=== PATIENT | female | born 1970 | race American Indian/Alaskan Native ===

== ENCOUNTER 2020-01-02 11:00 | Outpatient (CLI) | payer BC | END 2020-01-02 11:01 | disposition home or self-care (01) | LOC: SLR 11:00 | PROVIDERS: ATTEND Otolaryngology | DX: G47.30 Sleep apnea, unspecified (principal) | CPT/HCPCS: G0399 ==

== ENCOUNTER 2020-04-11 14:33 | Outpatient (CLI) | payer BC ==
[2020-04-11 15:06] LABS: Basophils % (Auto) 0.8 % (0.0-1.8); Eosinophils # (Auto) 0.1 K/mm3 (0.0-0.4); Eosinophils % (Auto) 1.8 % (0.0-4.3); Hematocrit 39.6 % (30.3-42.9); Hemoglobin 13.7 gm/dl (10.1-14.3); Lymphocytes # (Auto) 1.7 K/mm3 (1.2-5.4); Lymphocytes % (Auto) 39.7 % (13.4-35.0); Mean Corpuscular HGB Conc 35 % (30-34); Mean Corpuscular Volume 86 fl (79-97); Monocytes # (Auto) 0.5 K/mm3 (0.0-0.8); Monocytes % (Auto) 10.5 % (0.0-7.3); Platelet Count 298 K/mm3 (140-440); Red Blood Count 4.62 M/mm3 (3.65-5.03); Red Cell Distribution Width 15.8 % (13.2-15.2)
[2020-04-11 15:36] LABS: Alanine Aminotransferase 28 units/L (7-56); Albumin 4.2 g/dL (3.9-5); BUN/Creatinine Ratio 13; Blood Urea Nitrogen 8 mg/dL (7-17); Calcium 9.4 mg/dL (8.4-10.2); Chol/HDL Ratio 3.15 %; HDL Cholesterol 59 mg/dL (40-59); Hemolysis Index 3; Iron 40 ug/dL (37-170); LDL Cholesterol,Direct 114 mg/dL (50-130); Total Iron Binding Capacity 348 mcg/dL (250-450)
== END 2020-04-11 14:34 | disposition home or self-care (01) ==
LOC: LAB 14:33
PROVIDERS: ATTEND Surgery
DX: E66.01 Morbid (severe) obesity due to excess calories (principal); E11.9 Type 2 diabetes mellitus without complications; K30 Functional dyspepsia
CPT/HCPCS: 36415; 80053; 80061; 82306; 82607; 82728; 83036; 83550; 84443; 85025; 85730

== ENCOUNTER 2020-04-16 06:08 | Day surgery (SDC) | payer BC ==
[2020-04-16] MEDS ORDERED: SODIUM CHLORIDE 0.9% 1000 ML 1,000 ML IV SCH (07:30)
--- NOTE | 2020-04-16 08:25 | Anesthesia Consultation ---
Anesthesia Consult and Med Hx Date of service: 04/16/20 - Airway Anesthetic Teeth Evaluation: Edentulous ROM Head & Neck: Adequate Mental/Hyoid Distance: Inadequate Mallampati Class: Class II Intubation Access Assessment: Probably Good - Pulmonary Exam CTA: Yes - Pre-Operative Health Status ASA Pre-Surgery Classification: ASA3 Proposed Anesthetic Plan: MAC - Pulmonary Hx Smoking: No Hx Asthma: No Hx Respiratory Symptoms: No SOB: No Hx Sleep Apnea: Yes (Does not use CPAP machine) - Cardiovascular System Hx Hypertension: Yes Hx Heart Attack/AMI: No Hx Angina: No - Central Nervous System Hx Neuromuscular Disorder: No Hx Seizures: No CVA: No Hx Psychiatric Problems: No - Gastrointestinal Hx Gastroesophageal Reflux Disease: Yes - Endocrine Hx Renal Disease: No Hx Liver Disease: No Hx Insulin Dependent Diabetes: No Hx Non-Insulin Dependent Diabetes: No Hx Thyroid Disease: No - Hematic Hx Anemia: No - Other Systems Hx Alcohol Use: Yes (occasionally) Hx Substance Use: No Hx Obesity: Yes (BMI- 49.7kg) - Additional Comments Anesthesia Medical History Comments: Patient denied previous anesthesia complication.
--- NOTE | 2020-04-16 08:25 | Anesthesia Day of Surgery ---
Anesthesia Day of Surgery - Day of Surgery Patient Examined: Yes Patient H&P Reviewed: Yes Patient is NPO: Yes Beta Blockers: No Cardiac Clearance: No Pulmonary Clearance: No
[2020-04-16] MEDS ORDERED: propofoL 200 MG/20 ML VIAL IV ONE ×2 (09:00→09:09)
[2020-04-16] MEDS ORDERED: LIDOCAINE MPF (2%) 20 MG/1 ML VIAL 5 ML ONE (09:00)
[2020-04-16] MEDS ORDERED: ONDANSETRON 4 MG/2 ML INJ ONE (09:00)
[2020-04-16] MEDS ORDERED: fentaNYL 100 MCG/2 ML INJ ONE (09:00)
[2020-04-16] MEDS ORDERED: SODIUM CHLORIDE 0.9% 1000 ML IV SOLN IV ONE (09:04)
--- NOTE | 2020-04-16 09:14 | Discharge Summary ---
Providers - Providers Date of Admission: 04/16/2020 Date of discharge: 04/16/20 Attending physician: CHRISTIANO EASTMAN MD Hospitalization Reason for admission: pre-op bariatric EGD Condition: Good Procedures: EGD with biopsy Hospital course: Pt presented for a pre-op EGD as part of planning for up coming bariatric surgery. Procedure was uneventful and pt recovered well and was discharged to home. Disposition: DC-01 TO HOME OR SELFCARE Core Measure Documentation - Palliative Care Palliative Care/ Comfort Measures: Not Applicable - Core Measures Any of the following diagnoses?: none Exam - Physical Exam Narrative exam: unchanged from pre-op - Constitutional Vitals: Temp Pulse Resp BP Pulse Ox 98.2 F 88 23 126/66 98 04/16/20 08:22 04/16/20 08:22 04/16/20 08:22 04/16/20 08:22 04/16/20 08:22 Plan Activity: no restrictions Diet: low carbohydrate Follow up with: OSCAR ROD [Other] - 7 Days
--- NOTE | 2020-04-16 09:18 | Operative Report ---
Operative Report Operative Report: DATE: 04/16/2020 SURGERY: Upper endoscopy. SURGEON: Adriano Cooper M.D. PROCEDURE: EGD with biopsy PRE OP DX: morbid obesity, GERD POST OP DX: morbid obesity, GERD TYPE OF ANESTHESIA: MAC. ESTIMATED BLOOD LOSS: None. COMPLICATIONS: None. SPECIMENS REMOVED: antral biopsy FINDINGS: 1. Small hiatal hernia. 2. antral gastritis. INDICATIONS:INDICATION FOR PROCEDURE: Patient is a 49-year-old female with a long history of morbid obesity. She is planned to have a weight loss procedure and is here for preoperative planning EGD. PROCEDURE DETAILS: After consent was reviewed, patient was taken back to the operating room where patient was placed in the left lateral decubitus position and a bite block was placed in the mouth. After a time-out was called, MAC anesthesia was initiated. I then passed the endoscope into her oropharynx, into her esophagus, visualized the entire esophagus, which was all within normal limits. Z-line was noted to about 35cm from incisors. I then visualized the stomach and the first portion of the duodenum and there were no abnormalities I could clearly visualize. A cold forceps biopsy of the antrum was taken and will be sent to pathology to evaluate for H.pylori. I then retroflexed the scope in the stomach and visualized the hiatus and I could see a small hiatal hernia. I then desufflated the stomach and removed the endoscope. Patient tolerated procedure well and was transferred to recovery room in good and stable condition.
[2020-04-16 09:46] VITALS: BP 113/58
[2020-04-16] MEDS ORDERED: SODIUM CHLORIDE 0.9% 1000 ML 1,000 ML ONE (10:47)
--- NOTE | 2020-04-16 13:18 | Post Anesthesia Evaluation ---
- Post Anesthesia Evaluation Patient Participated: Yes Airway Patent: Yes Stable Respiratory Function: Yes Nausea/Vomiting: No Temp > 96.8F: Yes Pain Manageable: Yes Adequeate Hydration: Yes Anesthesia Complications: No
== END 2020-04-16 10:05 | disposition home or self-care (01) ==
LOC: GIO 06:08
PROVIDERS: ATTEND Surgery
DX: K21.9 Gastro-esophageal reflux disease without esophagitis (principal); E66.01 Morbid (severe) obesity due to excess calories; K44.9 Diaphragmatic hernia without obstruction or gangrene; K29.50 Unspecified chronic gastritis without bleeding; I10 Essential (primary) hypertension; E78.00 Pure hypercholesterolemia, unspecified; G47.30 Sleep apnea, unspecified; M19.90 Unspecified osteoarthritis, unspecified site; Z91.013 Allergy to seafood; Z88.2 Allergy status to sulfonamides; Z79.899 Other long term (current) drug therapy; Z85.3 Personal history of malignant neoplasm of breast; Z72.89 Other problems related to lifestyle; Z98.890 Other specified postprocedural states; Z90.10 Acquired absence of unspecified breast and nipple
CPT/HCPCS: 43239; 88305; 88342; J2405; J2704; J3010; J7030

== ENCOUNTER 2020-06-05 10:10 | Outpatient (CLI) | payer BC ==
--- NOTE | 2020-06-05 12:21 | Fluoroscopy Report ---
UPPER GI HISTORY: FUNCTIONAL DYSPEPSIA. TECHNIQUE: Single and double contrast barium technique utilized to evaluate the esophagus, stomach, and duodenal C-loop. FINDINGS: To begin the exam, swallowing was evaluated in the lateral position under direct fluorosco py. Swallowing was normal. No mucosal irregularity, mass, mass effect, or critical stenosis. There were no abnormal tertiary c ontractions as seen with dysmotility. No gastroesophageal reflux. IMPRESSION: Unremarkable exam. Fluoroscopic time: 2.0 minutes Number of fluoroscopic images: 18 Comment: During the acquisition of the overhead radiographs, the patient began experiencing right-chapo ed numbness and nausea. It was decided to send the patient to the emergency department for evaluation . Signer Name: Wilfred Dolan Jr, MD Signed: 06/05/2020 12:17 PM Workstation Name: [id number]
== END 2020-06-05 10:11 | disposition home or self-care (01) ==
LOC: FLUORO 10:10
PROVIDERS: ATTEND Surgery
DX: K30 Functional dyspepsia (principal)
CPT/HCPCS: 74246

== ENCOUNTER 2020-06-05 11:48 | Emergency (ER) | payer BC ==
--- NOTE | 2020-06-05 12:36 | Event Note ---
ED Screening Note Date of service: 06/05/20 Time: 12:34 ED Screening Note: Pleasant 49-year-old female presents the emergency department with a chief complaint of feeling generalized weakness and lightheadedness. She was undergoing an upper endoscopy at her GI doctors office and was unable to c omplete the procedure due to her symptoms. She was sent over to the emergency department for evaluation. She reports she was getting the under upper endoscopy for presurgical planning for a sleeve gastrectomy This initial assessment/diagnostic orders/clinical plan/treatment(s) is/are subject to change based on patients health status, clinical progression and re- assessment by fellow clinical providers in the ED. Further treatment and workup at subsequent clinical providers discretion. Patient/guardian urged not to elope from the ED as their condition may be serious if not clinically assessed and managed. Initial orders include: CBC, CMP, PT, PTT, EKG, troponin, chest x-ray
[2020-06-05] MEDS ORDERED: ONDANSETRON 4 MG/2 ML INJ IV ONE (13:45)
[2020-06-05] MEDS ORDERED: SODIUM CHLORIDE 0.9% 1000 ML 1,000 ML IV ONE (13:45)
[2020-06-05] MEDS ORDERED: MECLIZINE 25 MG TAB PO ONE (13:45)
--- NOTE | 2020-06-05 13:46 | Emergency Department Report ---
ED Dizziness HPI - General Chief Complaint: Dizziness Stated Complaint: NAUSEA/WEAK Time Seen by Provider: 06/05/20 13:35 Source: patient Mode of arrival: Wheelchair Limitations: No Limitations - History of Present Illness Initial Comments: Patient is 49 years old female with history of hypertension. Patient presented to the ER from her GI doctor after patient supposed to have an upper GI endoscopy for preparation of gastrectomy. Patient stated that she felt dizzy and felt the room started spinning. Patient stated that she became more bit nauseated. Patient denied any headache, neck pain, focal weakness numbness or tingling sensation. No bowel or bladder incontinence. Patient denied any chest pain or shortness of breath. MD Complaint: dizziness, lightheadedness -: This morning Timing: sudden onset Description: "room spinning" History of Same: No Improves With: remaining still Associated Symptoms: denies other symptoms - Related Data Home Medications Medication Instructions Recorded Confirmed Last Taken amLODIPine 10 mg PO DAILY 04/16/20 06/05/20 04/15/20 09:00 Allergies Allergy/AdvReac Type Severity Reaction Status Date / Time shellfish derived Allergy Swelling,HI Verified 06/05/20 13:49 VES Sulfa (Sulfonamide Allergy Swelling,HI Verified 06/05/20 13:49 Antibiotics) VES ED Review of Systems ROS: Stated complaint: NAUSEA/WEAK Other details as noted in HPI Comment: All other systems reviewed and negative Constitutional: denies: chills, fever Respiratory: denies: cough, shortness of breath, SOB with exertion Cardiovascular: denies: chest pain, palpitations Gastrointestinal: nausea. denies: abdominal pain, vomiting Musculoskeletal: denies: back pain Neurological: denies: headache, weakness ED Past Medical Hx - Past Medical History Previous Medical History?: Yes Hx Hypertension: Yes Hx Heart Attack/AMI: No Hx Liver Disease: No Hx Renal Disease: No Hx of Cancer: Yes (breast) Hx Arthritis: Yes Hx Seizures: No Hx Asthma: No - Surgical History Past Surgical History?: Yes Additional Surgical History: mastectomy. left knee surgery - Social History Smoking Status: Never Smoker Substance Use Type: None - Medications Home Medications: Home Medications Medication Instructions Recorded Confirmed Last Taken Type amLODIPine 10 mg PO DAILY 04/16/20 06/05/20 04/15/20 09:00 History ED Physical Exam - General Limitations: No Limitations General appearance: alert, in no apparent distress - Head Head exam: Present: atraumatic, normocephalic, normal inspection - Eye Eye exam: Present: normal appearance, PERRL - ENT ENT exam: Present: normal exam, normal orophraynx, mucous membranes moist - Neck Neck exam: Present: normal inspection, full ROM. Absent: tenderness, meningismus - Respiratory Respiratory exam: Present: normal lung sounds bilaterally - Cardiovascular Cardiovascular Exam: Present: regular rate, normal rhythm, normal heart sounds - GI/Abdominal GI/Abdominal exam: Present: soft, normal bowel sounds. Absent: distended, tenderness, guarding, rebound, rigid, organomegaly, mass, bruit, pulsatile mass, hernia - Back Exam Back exam: Present: normal inspection, full ROM. Absent: CVA tenderness (R), CVA tenderness (L) - Neurological Exam Neurological exam: Present: alert, oriented X3, CN II-XII intact, normal gait, reflexes normal. Absent: motor sensory deficit - Psychiatric Psychiatric exam: Present: normal mood - Skin Skin exam: Present: warm, intact, normal color ED Course Vital Signs 06/05/20 06/05/20 12:30 15:07 Temperature 97.9 F Pulse Rate 101 H 74 Respiratory 16 16 Rate Blood Pressure 138/75 Blood Pressure 119/71 [Left] O2 Sat by Pulse 98 96 Oximetry ED Medical Decision Making - Lab Data Result diagrams: 06/05/20 13:41 06/05/20 14:43 - EKG Data -: EKG Interpreted by Me EKG shows normal: sinus rhythm Rate: normal - EKG Data Interpretation: no acute changes - Radiology Data Radiology results: report reviewed - Medical Decision Making Patient is 49 years old female with history of hypertension. Patient presented to the ER from her GI doctor after patient supposed to have an upper GI endoscopy for preparation of gastrectomy. Patient stated that she felt dizzy and felt the room started spinning. Patient stated that she became more bit nauseated. Patient denied any headache, neck pain, focal weakness numbness or tingling sensation. No bowel or bladder incontinence. Patient denied any chest pain or shortness of breath. Patient received meclizine and Zofran. Patient stated that she is feeling much better and her symptoms completely resolved. Labs reviewed and is unremarkable. EKG is unremarkable. CT brain is negative for acute finding. Patient symptoms most likely related to positional vertigo however patient advised to follow-up with her primary care physician for further management in the next 2 to 3 days and to return to the ER if she develop any new symptoms. Critical care attestation.: If time is entered above; I have spent that time in minutes in the direct care of this critically ill patient, excluding procedure time. ED Disposition Clinical Impression: Dizziness, Vertigo Disposition: DC-01 TO HOME OR SELFCARE Is pt being admited?: No Condition: Stable Instructions: Dizziness, [id number] Referrals: OSCAR ROD NP [Primary Care Provider] - 3-5 Days
[2020-06-05] MEDS ORDERED: ONDANSETRON 4 MG ODT TAB PO ONE (14:00)
[2020-06-05 14:14] LABS: Basophils % (Auto) 0.6 % (0.0-1.8); Eosinophils % (Auto) 0.3 % (0.0-4.3); Hematocrit 41.3 % (30.3-42.9); Hemoglobin 14.2 gm/dl (10.1-14.3); Lymphocytes % (Auto) 19.6 % (13.4-35.0); Mean Corpuscular HGB Conc 34 % (30-34); Mean Corpuscular Volume 86 fl (79-97); Monocytes # (Auto) 0.4 K/mm3 (0.0-0.8); Monocytes % (Auto) 7.4 % (0.0-7.3); Platelet Count 293 K/mm3 (140-440); Red Blood Count 4.83 M/mm3 (3.65-5.03); Red Cell Distribution Width 15.6 % (13.2-15.2)
[2020-06-05 14:24] LABS: INR 1.03 (0.87-1.13)
[2020-06-05 14:25] LABS: Partial Thromboplastin Time 25.8 Sec. (24.2-36.6)
--- NOTE | 2020-06-05 14:53 | Cat Scan Report ---
CT HEAD WITHOUT CONTRAST INDICATION / CLINICAL INFORMATION: DIZZINESS. TECHNIQUE: Axial imaging performed from the skull apex through the skull base without the use of cont rast. Sagittal and coronal reformatted images. All CT scans at this location are performed using CT dose reduction for ALARA by means of automated exposure control. COMPARISON: None available. FINDINGS: CEREBRAL PARENCHYMA: No significant abnormality. No acute territorial infarct. HEMORRHAGE: None. EXTRA-AXIAL SPACES: Normal in size and morphology for the patient's age. VENTRICULAR SYSTEM: Normal in size and morphology for the patient's age. MIDLINE SHIFT OR HERNIATION: None. CEREBELLUM / BRAINSTEM: No significant abnormality. CALVARIUM: No significant abnormality. ORBITS: Normal as visualized. PARANASAL SINUSES / MASTOID AIR CELLS: Normal as visualized. SOFT TISSUES of HEAD: No significant abnormality. ADDITIONAL FINDINGS: None. IMPRESSION: No acute intracranial abnormality. Signer Name: Wilfred Dolan Jr, MD Signed: 06/05/2020 2:49 PM Workstation Name: [id number]
[2020-06-05 15:21] LABS: Alanine Aminotransferase 28 units/L (7-56); Albumin 4.6 g/dL (3.9-5); Blood Urea Nitrogen 6 mg/dL (7-17); Hemolysis Index 7
[2020-06-05 15:28] LABS: BUN/Creatinine Ratio 9
[2020-06-05 15:44] LABS: Bacteria,Urine 1+ /HPF (Negative); Bilirubin,Urine NEG (Negative); Blood,Urine NEG (Negative); Color,Urine Yellow (Yellow); Mucus,Urine 1+ /HPF; Protein,Urine <15 mg/dL mg/dL (Negative); Urobilinogen,Urine < 2.0 mg/dL (<2.0)
[2020-06-05 15:50] LABS: HCG Qualitative,Urine Negative (Negative)
--- NOTE | 2020-06-05 16:30 | XRay Report ---
CHEST 1 VIEW 06/05/2020 4:10 PM INDICATION / CLINICAL INFORMATION: dizziness. COMPARISON: None available. FINDINGS: SUPPORT DEVICES: None. HEART / MEDIASTINUM: Heart is enlarged. LUNGS / PLEURA: Mild increased vascularity. No focal consolidation. No pneumothorax. ADDITIONAL FINDINGS: No significant additional findings. IMPRESSION: 1. Cardiomegaly with mild increased vascularity. Signer Name: Bryon Asencio MD Signed: 06/05/2020 4:26 PM Workstation Name: [id number]
[2020-06-05 18:31] VITALS: BP 83/54
== END 2020-06-05 18:42 | disposition home or self-care (01) ==
LOC: ED 11:48
DX: R42 Dizziness and giddiness (principal); I10 Essential (primary) hypertension; M19.91 Primary osteoarthritis, unspecified site; Z98.890 Other specified postprocedural states; Z79.899 Other long term (current) drug therapy; Z88.2 Allergy status to sulfonamides; Z91.013 Allergy to seafood
CPT/HCPCS: 36415; 70450; 71045; 80053; 81001; 81025; 82962; 84484; 85025; 85610; 85730; 93005; Q0162

== ENCOUNTER 2020-06-17 07:30 | Inpatient (IN) | payer BC ==
[2020-07-04 14:05] LABS: Hematocrit 43.9 % (30.3-42.9); Hemoglobin 14.7 gm/dl (10.1-14.3); Mean Corpuscular HGB Conc 33 % (30-34); Mean Corpuscular Volume 86 fl (79-97); Platelet Count 355 K/mm3 (140-440); Red Blood Count 5.08 M/mm3 (3.65-5.03); Red Cell Distribution Width 15.8 % (13.2-15.2)
[2020-07-04 14:26] LABS: Alanine Aminotransferase 31 units/L (7-56); Albumin 4.4 g/dL (3.9-5); Blood Urea Nitrogen 12 mg/dL (7-17); Hemolysis Index 3
[2020-07-04 14:28] LABS: BUN/Creatinine Ratio 17
--- NOTE | 2020-07-04 14:57 | Anesthesia Consultation ---
Anesthesia Consult and Med Hx Date of service: 07/08/20 - Airway Anesthetic Teeth Evaluation: Good ROM Head & Neck: Adequate Mental/Hyoid Distance: Adequate Mallampati Class: Class III Intubation Access Assessment: Possibly Difficult (small mouth opening) - Pulmonary Exam CTA: Yes - Cardiac Exam Cardiac Exam: RRR - Pre-Operative Health Status ASA Pre-Surgery Classification: ASA3 Proposed Anesthetic Plan: General - Pulmonary Hx Smoking: No Hx Respiratory Symptoms: No (early obstructive dz on PFTs) Hx Sleep Apnea: Yes (moderate; compliant with CPAP) - Cardiovascular System Hx Hypertension: Yes Hx Heart Attack/AMI: No (normal TTE per cardiology eval) Hx Percutaneous Transluminal Coronary Angioplasty (PTCA): No Hx Cardia Arrhythmia: No - Central Nervous System CVA: No - Gastrointestinal Hx Gastroesophageal Reflux Disease: Yes - Endocrine Hx Renal Disease: No Hx Liver Disease: No Hx Insulin Dependent Diabetes: No Hx Non-Insulin Dependent Diabetes: No Hx Thyroid Disease: No - Other Systems Hx Cancer: Yes (hx breast ca) Hx Obesity: Yes (BMI 47) - Additional Comments Anesthesia Medical History Comments: No hx anesthetic complications.
[2020-07-08] MEDS ORDERED: metroNIDAZOLE/NS 500 MG/100 ML 500 MG/100 ML BAG IV NR (06:00)
[2020-07-08] MEDS ORDERED: ENOXAPARIN 40 MG/0.4 ML INJ SUB-Q NR (06:00)
[2020-07-08] MEDS ORDERED: GABAPENTIN 500 MG/10 ML ORAL LIQD PO NR (06:00)
[2020-07-08] MEDS ORDERED: SCOPOLAMINE TRANSDERMAL PATCH 72 HR TD SCH (06:00)
[2020-07-08] MEDS ORDERED: LACTATED RINGERS 1,000 ML IV SCH ×2 (06:00→10:45)
[2020-07-08] MEDS ORDERED: ACETAMINOPHEN 325 MG/10.15 ML ORAL LIQD UNIT DOSE PO NR (06:00)
[2020-07-08] MEDS ORDERED: SCOPOLAMINE TRANSDERMAL PATCH 72 HR TD NR (06:00)
[2020-07-08] MEDS ORDERED: ceFAZolin/Water 2 GM/20 ML 2 GM/20 ML SYRINGE IV NR (06:00)
[2020-07-08] MEDS ORDERED: BACTERIOSTATIC SODIUM CHLORIDE 0.9% 30 ML VIAL INFILTRATI ONE (06:23)
--- NOTE | 2020-07-08 06:43 | Anesthesia Day of Surgery ---
Anesthesia Day of Surgery - Day of Surgery Patient Examined: Yes Patient H&P Reviewed: Yes Patient is NPO: Yes Beta Blockers: Yes
[2020-07-08] MEDS ORDERED: MAGNESIUM SULFATE 2 GM/50 ML BAG IV ONE (07:02)
[2020-07-08] MEDS ORDERED: SUGAMMADEX SODIUM 200 MG/2 ML VIAL IV ONE (07:02)
[2020-07-08] MEDS ORDERED: KETAMINE/STERILE WATER 50 MG/ML SYRINGE ONE (07:05)
[2020-07-08] MEDS ORDERED: LIDOCAINE MPF (2%) 20 MG/1 ML VIAL 5 ML ONE ×4 (07:06)
[2020-07-08] MEDS ORDERED: SODIUM CHLORIDE P/F VIAL 10 ML 10 ML ONE ×2 (07:06→07:09)
[2020-07-08] MEDS ORDERED: BUPIVACAINE/PF (0.25%) 2.5 MG/ML 30 ML VIAL INFILTRATI ONE ×3 (07:33→08:52)
[2020-07-08] MEDS ORDERED: LIDOCAINE 1.5% /EPINEPHRINE 1:200,000 AMP (5 ML) INFILTRATI ONE ×3 (07:33→08:25)
[2020-07-08] MEDS ORDERED: BUPIVACAINE/PF (0.5%) 5 MG/1 ML 30 ML VIAL INFILTRATI ONE ×2 (07:35→07:37)
[2020-07-08] MEDS ORDERED: dexAMETHasone 20 MG/5 ML VIAL ONE (08:17)
[2020-07-08] MEDS ORDERED: ONDANSETRON 4 MG/2 ML INJ ONE (08:18)
[2020-07-08] MEDS ORDERED: LIDOCAINE 2%/EPINEPHRINE 1:100,000 VIAL (20 ML) INFILTRATI ONE (08:53)
[2020-07-08] MEDS ORDERED: SODIUM CHLORIDE 0.9% IRR 1,500 ML BOTTLE IR ONE (08:54)
[2020-07-08] MEDS ORDERED: propofoL 200 MG/20 ML VIAL IV ONE (09:55)
[2020-07-08] MEDS ORDERED: KETOROLAC 30 MG/1 ML INJ ONE (10:22)
[2020-07-08] MEDS ORDERED: ONDANSETRON 4 MG/2 ML INJ IV PRN (10:36)
[2020-07-08] MEDS ORDERED: MORPHINE 2 MG/1 ML INJ IV PRN (10:36)
[2020-07-08] MEDS ORDERED: HYDROcodone/Acetaminophen 7.5-325MG-15ML ORAL LIQD PO PRN (10:36)
[2020-07-08] MEDS ORDERED: METOCLOPRAMIDE 10 MG/2 ML INJ IV PRN (10:36)
[2020-07-08] MEDS ORDERED: SIMETHICONE 80 MG CHEW TAB PO PRN (10:36)
[2020-07-08] MEDS ORDERED: hydrALAZINE 20 MG/1 ML INJ IV PRN (10:36)
[2020-07-08] MEDS ORDERED: ROCURONIUM 50 MG/5 ML INJ IV ONE ×2 (10:42)
--- NOTE | 2020-07-08 10:43 | Operative Report ---
Operative Report Operative Report: DATE:07/08/2020 Surgeon: Adriano Cooper MD Insurance Appraiser surgeon: Dar Ríos CSA MD Pre-op Dx: morbid obesity Post-op Dx: morbid obesity Procedure: 1. laparoscopic sleeve gastrectomy, 2. hiatal hernia repair Anesthesia: GETA, TAP block with 0.25% marcaine EBL: <10ml Specimen: gastric remnant Complication: none immediate Indication: 49 year old female with a history of morbid obesity . Pt is here for sleeve gastrectomy for weight loss to achieve healthier weight and improve or resolve his co-morbidities. She expressed understanding of the risks and benefits. PROCEDURE IN DETAIL: After consent was reviewed, patient was taken back to the operating room, where patient was placed supine on the bed with both arms out. The patient's legs were doubly strapped to the bed. Patient had a foot board in place. Patient had a body warmer placed by anesthesia. General anesthesia was induced with successful endotracheal intubation. Patient was then prepped and draped in normal sterile surgical fashion. After a time-out was called, I made a stab incision in the left subcostal area and placed a Veress needle through this incision and insufflated the abdomen to 18 mmHg pressure. I then counted down a handsbreadth below the xiphoid process in the midline and slightly left lateral injected local anesthetic and made about 1 cm transverse incision. I then used a 5-mm Optiview trocar to enter into the abdomen. There was no gross injury to any intra-abdominal structures. I then placed a 30-degree scope through this port and inspected the abdomen. I then placed a 8-mm port in the right upper quadrant, and 1 5mm epigastric area below the costovertebral angle. I then placed a 15-mm port about a handsbreadth in the right mid abdomen. After which a 5mm port was placed in left upper quadrant port along the anterior axillary line in a similar fashion. A liver retractor was placed to the epigastric port to elevate the left lateral lobe and liver. There was a small hiatal hernia appreciated that was accentuated with right and left crural dissection. Hiatal hernia sac was dissected from the crura until the GE junction was resting about 2cm below the level of the diaphragm without tension. An anterior crura-plasty was preformed a U-stitch using surgidac suture. The anterior gastric fat pad was excised. Starting approximately 6 cm proximal to the pylorus, using a LigaSure device the short gastrics were taken all the way to the left shree. Once the lateral portion of the stomach was mobile anesthesia passed a 40 Swiss bougie along the medial aspect to act as a stent. Using serial firings of endoscopic stapler to gold, followed by 4 blue, the lateral portion of the stomach was transected making sure to did not close to the 2 cm to the incisura. All staple loads were supported with peristrips buttress. The sleeve stomach was seen to be without kink obstruction or twisting. The pressure was decreased to 10 mmHg. The staple line was inspected for approximately 5 minutes. There was no significant bleeding appreciated except. Bleeding was minimal and easily controlled with minimal cautery. Tisseel was then sprayed along the entirety of the staple line. The liver retractor was removed. A TAP block we performed under direct visualization along bilateral mid axillary lines from the subcostal regions to just below the level of the umbilicus. This was before the gastric remnant was grasped and pulled into the 15 mm trocar site. The stomach was extracted via the 15 mm trocar site. After the fascia had to be stretched with a Oralia clamp to easily remove the stomach, the fascia was closed using a tracie tiny device at the level of the fascia with an 0 PDS. trocars were removed under direct visualization. All skin incisions were closed with 4-0 Monocryl followed by Dermabond. Patient was awoken, extubated, and taken to recovery stable condition. All counts were correct.
[2020-07-08] MEDS ORDERED: fentaNYL 100 MCG/2 ML INJ IV NR (11:28)
[2020-07-08] MEDS: KETOROLAC 30 MG/1 ML INJ IV SCH ×3 (11:40→22:18)
[2020-07-08] MEDS: metroNIDAZOLE/NS 500 MG/100 ML 500 MG/100 ML BAG IV SCH (14:17)
[2020-07-08] MEDS: ceFAZolin/NS 1 GM/50 ML 1 GM/50 ML BAG IV SCH ×2 (14:17→23:38)
[2020-07-09] MEDS: metroNIDAZOLE/NS 500 MG/100 ML 500 MG/100 ML BAG IV SCH ×2 (06:02→06:10)
[2020-07-09] MEDS: KETOROLAC 30 MG/1 ML INJ IV SCH ×3 (06:07→17:25)
[2020-07-09 06:32] LABS: Basophils % (Auto) 0.2 % (0.0-1.8); Hematocrit 37.8 % (30.3-42.9); Hemoglobin 12.6 gm/dl (10.1-14.3); Lymphocytes # (Auto) 0.6 K/mm3 (1.2-5.4); Lymphocytes % (Auto) 7.6 % (13.4-35.0); Mean Corpuscular HGB Conc 34 % (30-34); Mean Corpuscular Volume 87 fl (79-97); Monocytes # (Auto) 0.8 K/mm3 (0.0-0.8); Monocytes % (Auto) 10.9 % (0.0-7.3); Platelet Count 273 K/mm3 (140-440); Red Blood Count 4.34 M/mm3 (3.65-5.03); Red Cell Distribution Width 15.8 % (13.2-15.2)
[2020-07-09 06:51] LABS: Alanine Aminotransferase 35 units/L (7-56); Albumin 3.8 g/dL (3.9-5); Blood Urea Nitrogen 8 mg/dL (7-17); Calcium 8.8 mg/dL (8.4-10.2); Hemolysis Index 3
[2020-07-09 06:57] LABS: BUN/Creatinine Ratio 11
[2020-07-09] MEDS ORDERED: NON-FORMULARY EACH (Amlodipine 10 MG) PO SCH (10:00)
[2020-07-09] MEDS ORDERED: ENOXAPARIN 40 MG/0.4 ML INJ SUB-Q SCH (10:00)
[2020-07-09] MEDS ORDERED: amLODIPine 10 MG TAB PO SCH (10:00)
--- NOTE | 2020-07-09 10:29 | Progress Note ---
Assessment and Plan POD#1 s/p lap gastric sleeve for morbid obesity and hiatal hernia repair. afebrile and stable showing no clinical signs of leak or bleeding. Will monitor PO fluid intake. If adequate will be discharged today. If she is barely getting enough fluids may need to keep until tomorrow to try to prevent dehydration when she gets home. Subjective Date of service: 07/09/20 Patient Reports: Positive: no new complaints, pain is less Narrative: no acute events overnight. Pt is starting to take clear liquids and is only taking a few sips at a time. Nausea is improved. She ambulated well with PT. Objective Vital Signs - 12hr 07/08/20 07/09/20 07/09/20 23:26 05:16 07:50 Temperature 98.6 F 98.7 F 98.8 F Pulse Rate 93 H 99 H 94 H Respiratory 18 18 18 Rate Blood Pressure 119/69 110/68 106/62 O2 Sat by Pulse 95 97 97 Oximetry - General physical appearance well developed, no distress, no pain - Respiratory normal expansion, normal respiratory effort - Abdomen soft, not distended, other (appropriately tender to palpation, incisions c/d/i) - Labs 07/09/20 06:14 07/09/20 06:14 Diabetes panel 07/09/20 Range/Units 06:14 Sodium 140 (137-145) mmol/L Potassium 4.1 (3.6-5.0) mmol/L Chloride 103.2 (98-107) mmol/L Carbon Dioxide 28 (22-30) mmol/L BUN 8 (7-17) mg/dL Creatinine 0.7 (0.6-1.2) mg/dL Glucose 111 H (65-100) mg/dL Calcium 8.8 (8.4-10.2) mg/dL AST 35 (5-40) units/L ALT 35 (7-56) units/L Alkaline Phosphatase 50 (35-129) units/L Total Protein 6.8 (6.3-8.2) g/dL Albumin 3.8 L (3.9-5) g/dL Calcium panel 07/09/20 Range/Units 06:14 Calcium 8.8 (8.4-10.2) mg/dL Albumin 3.8 L (3.9-5) g/dL Pituitary panel 07/09/20 Range/Units 06:14 Sodium 140 (137-145) mmol/L Potassium 4.1 (3.6-5.0) mmol/L Chloride 103.2 (98-107) mmol/L Carbon Dioxide 28 (22-30) mmol/L BUN 8 (7-17) mg/dL Creatinine 0.7 (0.6-1.2) mg/dL Glucose 111 H (65-100) mg/dL Calcium 8.8 (8.4-10.2) mg/dL Adrenal panel 07/09/20 Range/Units 06:14 Sodium 140 (137-145) mmol/L Potassium 4.1 (3.6-5.0) mmol/L Chloride 103.2 (98-107) mmol/L Carbon Dioxide 28 (22-30) mmol/L BUN 8 (7-17) mg/dL Creatinine 0.7 (0.6-1.2) mg/dL Glucose 111 H (65-100) mg/dL Calcium 8.8 (8.4-10.2) mg/dL Total Bilirubin 0.40 (0.1-1.2) mg/dL AST 35 (5-40) units/L ALT 35 (7-56) units/L Alkaline Phosphatase 50 (35-129) units/L Total Protein 6.8 (6.3-8.2) g/dL Albumin 3.8 L (3.9-5) g/dL
[2020-07-09 12:20] VITALS: BP 117/68
--- NOTE | 2020-07-09 14:40 | Post Anesthesia Evaluation ---
- Post Anesthesia Evaluation Patient Participated: Yes Airway Patent: Yes Stable Respiratory Function: Yes Nausea/Vomiting: No Pain Manageable: Yes Adequeate Hydration: Yes Anesthesia Complications: No Block Receding Appropriately: Not Applicable Patient on Ventilator: No Other Comments: pt a+o x 3. Denies pain. Denies recall from procedure. Resting comfortable in bed. Pending discharge home
--- NOTE | 2020-07-10 09:11 | Discharge Summary ---
Providers - Providers Date of Admission: 07/08/20 05:56 Date of discharge: 07/09/20 Attending physician: CHRISTIANO EASTMAN MD 07/08/20 10:36 Physical Therapy Evaluation and Treat [CONS] Routine Comment: Reason For Exam: post op bariatric surgery eval Primary care physician: OSCAR ROD NP Hospitalization Reason for admission: s/p lap gastric sleeve Condition: Good Procedures: lap gastric sleeve with hiatal hernia repair Hospital course: pt was admitted after an uneventful lap sleeve gastrectomy with hiatal hernia repair. post op she did well with good pain control and tolerated clear liquids. She remained afebrile with normal vital signs and labs. She showed no clinical signs of leak or bleeding upon discharge. Disposition: TO HOME OR SELFCARE Final Discharge Diagnosis (Prints w/discharge instructions): morbid obesity Core Measure Documentation - Palliative Care Palliative Care/ Comfort Measures: Not Applicable - Core Measures Any of the following diagnoses?: none Exam - Physical Exam Narrative exam: unchanged from progress noted from 07/09/20 - Constitutional Vitals: Temp Pulse Resp BP Pulse Ox 99.0 F 81 18 117/68 95 07/09/20 11:34 07/09/20 11:34 07/09/20 11:34 07/09/20 11:34 07/09/20 11:34 Plan Activity: advance as tolerated Diet: clear liquids Wound: open to air, keep clean and dry Follow up with: OSCAR ROD NP [Primary Care Provider] - 7 Days
== END 2020-07-09 17:45 | disposition home or self-care (01) | DRG 621 ==
LOC: 3A 07-08 05:56 → 3B-SURG 07-08 12:28
PROVIDERS: ADMIT Surgery; ATTEND Surgery
PROC: 0DB64Z3 Excision of Stomach, Percutaneous Endoscopic Approach, Vertical (ICD-10-PCS; principal; 2020-07-08)
PROC: 0BQT4ZZ Repair Diaphragm, Percutaneous Endoscopic Approach (ICD-10-PCS; 2020-07-08)
DX: E66.01 Morbid (severe) obesity due to excess calories (principal); G47.30 Sleep apnea, unspecified; K21.9 Gastro-esophageal reflux disease without esophagitis; Z20.822 Contact with and (suspected) exposure to COVID-19; Z68.42 Body mass index [BMI] 45.0-49.9, adult; Z85.3 Personal history of malignant neoplasm of breast; K44.9 Diaphragmatic hernia without obstruction or gangrene
CPT/HCPCS: 36415; 80053; 84703; 85025; 85027; 88307; G0378; C9250; J0690; J1100; J1650; J1885; J2405; J2704; J2765; J3010; J3475; J3490; J7120; U0003

== ENCOUNTER 2020-08-07 14:43 | Outpatient (CLI) | payer BC ==
[2020-08-07 15:29] LABS: Basophils % (Auto) 0.8 % (0.0-1.8); Eosinophils # (Auto) 0.1 K/mm3 (0.0-0.4); Eosinophils % (Auto) 1.8 % (0.0-4.3); Hematocrit 43.2 % (30.3-42.9); Hemoglobin 14.5 gm/dl (10.1-14.3); Lymphocytes # (Auto) 1.8 K/mm3 (1.2-5.4); Mean Corpuscular HGB Conc 34 % (30-34); Mean Corpuscular Volume 88 fl (79-97); Monocytes # (Auto) 0.4 K/mm3 (0.0-0.8); Monocytes % (Auto) 9.1 % (0.0-7.3); Platelet Count 312 K/mm3 (140-440); Red Blood Count 4.93 M/mm3 (3.65-5.03); Red Cell Distribution Width 15.7 % (13.2-15.2)
[2020-08-07 15:53] LABS: Alanine Aminotransferase 37 units/L (7-56); Albumin 3.7 g/dL (3.9-5); BUN/Creatinine Ratio 16; Blood Urea Nitrogen 13 mg/dL (7-17); Calcium 9.5 mg/dL (8.4-10.2); HDL Cholesterol 61 mg/dL (40-59); Hemolysis Index 18; Iron 40 ug/dL (37-170); LDL Cholesterol,Direct 107 mg/dL (50-130); Total Iron Binding Capacity 317 mcg/dL (250-450)
[2020-08-11 12:35] LABS: Vitamin D, 25-OH, D2 <4 ng/mL
== END 2020-08-07 14:44 | disposition home or self-care (01) ==
LOC: LAB 14:43
PROVIDERS: ATTEND Surgery
DX: E66.01 Morbid (severe) obesity due to excess calories (principal); E11.9 Type 2 diabetes mellitus without complications; K30 Functional dyspepsia; Z98.84 Bariatric surgery status
CPT/HCPCS: 36415; 80053; 80061; 82306; 82607; 82728; 83036; 83550; 84425; 84443; 85025